=== PATIENT | female | born 1950 | race Caucasian/White ===

== ENCOUNTER 2018-04-11 14:17 | Emergency (ER) | payer SELFPAY ==
[~2018-04-11] VITALS: Ht 162.6 cm; Wt 90.3 kg
[~2018-04-11 14:17] MED LIST: AMOXICILLIN; LISINAPRIL; METFORMIN
[2018-04-11] MEDS ORDERED: METF-442 PO (14:42)
[2018-04-11] MEDS ORDERED: LISI10TA5 PO (14:42)
--- NOTE | 2018-04-11 14:59 | NUR ---
MINO LEO AT BEDSIDE FOR MSE.
--- NOTE | 2018-04-11 15:10 | NUR ---
Patient discharged to home in stable conditon. Written and verbal after care instructions given. Patient verbalizes understanding of instructions. Pt ambulated out of ER in steady gait with family. VSS. No acute distress noted.
[2018-04-11 15:12] VITALS: BP 147/82
== END 2018-04-11 15:13 | disposition home or self-care (01) ==
LOC: ER 14:17
DX: J06.9 Acute upper respiratory infection, unspecified (principal); I10 Essential (primary) hypertension; E11.9 Type 2 diabetes mellitus without complications; Z79.2 Long term (current) use of antibiotics; Z79.899 Other long term (current) drug therapy
CPT/HCPCS: A4663